=== PATIENT | male | born 1970 | race Caucasian/White ===

== ENCOUNTER 2023-07-10 12:15 | Emergency (ER) | payer SELFPAY ==
[2023-07-10 12:16] VITALS: BP 155/94; PULSE 90; RESP 16; TEMP 36.8; O2SAT 99; BMI 30.9
--- NOTE | 2023-07-10 12:22 | RAD_ITS ---
STUDY: X-RAY - LEFT KNEE REASON FOR EXAM: Male, 53 years old. INJURY TECHNIQUE: 4 view(s) of the knee. COMPARISON: None. FINDINGS: Normal visualized distal femur. Normal visualized proximal tibia and fibula. Normal proximal tibiofibular articulation. Normal medial femorotibial compartment. Normal lateral femorotibial compartment. Normal patellofemoral articulation. The soft tissue structures are unremarkable. RAD/Knee 4 or More Views IMPRESSION: Normal x-ray examination of the knee. Electronically Signed: Tommy Melendez MD at 12:39 EST ,
--- NOTE | 2023-07-10 14:26 | ED.VIS.LOWEX ---
HPI History of Present Illness Chief Complaint: Lower Extremity Injury Detail of Chief Complaint: Fall with left knee injury Informant: patient Narrative Narrative: Patient presents to the emergency department after sustaining a fall yesterday where he was going down the steps and one of the steps broke he fell landing with his left knee onto concrete. Patient able to bear weight but having a lot of pain with movement. Denies any other injuries. Patient not sure if the leg twisted or just directly hit. [facility] Medical History (Updated 07/10/23 @ 14:[address] Alexys Brannon, DO) Lower extremity injury Home Medications No Known/Unobtainable [No Known Home Medications] 09/26/13 [History Last Taken Unknown] Allergy/AdvReac Type Severity Reaction Status Date / Time No Known Allergies Allergy Verified 07/10/23 12:17 Social History Smoking Status: Current every day smoker tobacco type: cigarettes ROS ROS ED Review of Systems ROS Unobtainable: other Constitutional Constitutional ED: Reports lethargy; Denies chills, fever(s), sweats or weight loss Eyes Eyes: Denies blurry vision, change in vision or diplopia ENT ENT ED: Denies rhinorrhea or sore throat Cardiovascular Cardiovascular: Denies chest pain, orthopnea or racing heartbeat Respiratory/Chest Respiratory/Chest: Denies cough, dyspnea, dyspnea on exertion, orthopnea or sputum Gastrointestinal Gastrointestinal: Denies abdominal pain, diarrhea, nausea or vomiting Genitourinary Genitourinary ED: Denies dysuria, hematuria or urinary frequency Musculoskeletal Musculoskeletal: Reports other Details: Left knee pain/injury ; Denies arthralgias, back pain, myalgias or neck pain Integumentary Denies abscess, Abrasions or rash Neurologic Neurologic: Denies headache(s) or weakness Psychiatric Psychiatric: Denies anxiety, depression or suicidal thoughts Endocrine Endocrinology: Denies polydipsia, polyphagia or polyuria Hematologic/Lymphatic Hematologic/Lymphatic: Denies easy bleeding, easy bruising or lymphadenopathy Allergic/Immunologic Allergic/Immunologic ED: Denies mouth swelling, tongue swelling or urticaria EXAM Physical Exam Const Vital Signs: 07/10/23 12:16 Temperature 98.2 F Temperature Source Temporal Pulse Rate 90 Respiratory Rate 16 Blood Pressure 155/94 H Blood Pressure Mean 114 Pulse Ox 99 Oxygen Delivery Method Room Air Positive well nourished and well developed General Appearance ED: well developed and NAD HEENT Reports TM's clear and moist mucous membranes normocephalic and atraumatic; Negative for trauma or tenderness Tympanic Membrane ED: Yes TM's clear Eyes PERRL and EOMs intact bilaterally General Eye ED: Negative for pale conjunctiva or scleral icterus Neck no lymphadenopathy, supple and no JVD General: Negative for tenderness Chest Wall inspection of chest normal and palpation of chest normal Chest: Negative for tenderness Resp normal respiratory effort and clear to auscultation bilaterally Effort and Inspection: Negative for respiratory distress or pain with movement Auscultation: Negative for rhonchi, wheezes or diminished lung sounds Cardio regular rate, regular rhythm, S1 normal heart sound, S2 normal heart sound and no murmurs Peripheral Pulses: pulses 2+ throughout GI normal to inspection, nondistended, normoactive bowel sounds, soft to palpation, non-tender, non-distended and no masses Back/Spine no CVA tenderness and no thoracic nor lumbar tenderness Extremity Extremity Narrative: Left lower extremity-patient evaluation of the knee reveals no effusion. He has some mild diffuse tenderness over the medial and lateral joint lines. Limited range of motion flexion extension secondary to pain. He does have some ecchymosis and bruising to the anterior proximal strauss/tibia. No deformity. Neurovascular intact distally. Ligamentous exam difficult as patient does not tolerate well due to pain. General Extremety ED: Negative for edema General Extremity: Negative for edema Neuro oriented x3, CN's II-XII intact bilaterally, no sensory deficits noted and gait normal Sensorium / Orientation: awake, alert, oriented to person, oriented to place and oriented to time Motor Exam: strength 5/5 throughout and strength abnormal Psych mental status grossly normal Skin no rashes or lesions noted and no wounds MDM MDM MDM Narrative Medical decision making narrative: Patient with fall and left knee injury. I suspect likely bruise but cannot rule out sprain or ligamentous injury. X-rays of the knee were negative for fracture or dislocation. Will place patient in a knee immobilizer. He does not want crutches. He does not want a thing for pain. Patient will be referred to orthopedics for follow-up. He is to ice and elevate the extremity. Radiography Diagnostic Testing: Clinical Impression(s) from Imaging Studies Knee X-Ray 07/10/23 12:22 IMPRESSION: Normal x-ray examination of the knee. Electronically Signed: Tommy Melendez MD at 12:39 EST , Discharge Plan Triage Chief Complaint: Lower Extremity Injury ED Provider: Alexys Brannon Dx/Rx/DC Orders Clinical Impression: Left knee sprain, Contusion of knee, left Instructions: ED Contusion, Lower Extremity, ED Knee Sprain Prescriptions: No Action No Known Home Medications Primary Care Provider: Care Physician,No Primary Referrals: Freedom Marin DO [Med Staff - Active Staff] - 3-5 Days Care Physician,No Primary [Primary Care Provider] - Disposition Disposition: Home, Self Care Discharge Date/Time: 07/10/23 14:44
== END 2023-07-10 14:44 | disposition home or self-care (01) ==
LOC: ED 14:43
PROVIDERS: Emergency Provider Emergency Medicine; Visit Provider Emergency Medicine
DX: S83.92XA Sprain of unspecified site of left knee, initial encounter (principal); S80.02XA Contusion of left knee, initial encounter; F17.210 Nicotine dependence, cigarettes, uncomplicated; W10.9XXA Fall (on) (from) unspecified stairs and steps, initial encounter
CPT/HCPCS: 73564; 99283